=== PATIENT | male | born 1975 | race Caucasian/White ===

== ENCOUNTER 2018-04-21 17:36 | Emergency (ER) | payer OTHER ==
--- NOTE | 2018-04-21 18:08 | EDPHY ---
H & P Stated Complaint: Recheck abcess R index finger w/cellulitis;worse today; streaking up arm Time Seen by Provider: 04/21/18 18:08 - Personal History Current Tetanus Diphtheria and Acellular Pertussis (TDAP): Yes - Medical/Surgical History Hx Asthma: Yes Hx Chronic Respiratory Disease: No Hx Diabetes: No Hx Cardiac Disease: No Hx Renal Disease: No Hx Cirrhosis: No Hx Alcoholism: No Hx HIV/AIDS: No Hx Splenectomy or Spleen Trauma: No Other PMH: asthma - Social History Smoking Status: Former smoker Constitutional: Initial Vital Signs Temperature (C) 36.6 C 04/21/18 17:38 Heart Rate 71 04/21/18 17:38 Respiratory Rate 16 04/21/18 17:38 Blood Pressure 132/89 H 04/21/18 17:38 O2 Sat (%) 95 04/21/18 17:38 O2 Delivery Mode Room Air Allergies/Adverse Reactions: No Known Allergies Allergy (Verified 04/21/18 17:37) Home Medications: Medication Instructions Recorded Albuterol Hfa Anes Only 04/20/18 Cephalexin [Keflex] 500 mg PO Q6H #28 cap 04/20/18 Doxycycline Hyclate 100 mg PO BID #14 tab 04/21/18 Medical Decision Making ED Course/Re-evaluation: CHIEF COMPLAINT: Cellulitis, spider bite HISTORY OF PRESENT ILLNESS: This patient is a 42 year old male returning to the emergency department with worsening symptoms secondary to a possible spider bite. He sustained a bite to his right index finger and presented yesterday with erythema to the finger below the nail with mild streaking up the right index finger to the dorsal aspect of his right arm. Today, the area below his fingernail is swollen and dark-colored. He states he was able to express some purulent drainage. Additionally, the streaking now extends to his axilla and he endorses lymph node swelling in the axilla as well. Patient began a course of Keflex yesterday evening. He denies fever, vomiting, racing heart, or other associated symptoms. REVIEW OF SYSTEMS: A 10 point review of systems was performed and is negative with the exception of the elements mentioned in the history of present illness. PHYSICAL EXAM: HR, BP, O2 Sat, RR. Temp noted General Appearance: Alert, well hydrated, appropriate, and non-toxic appearing. Head: Atraumatic without scalp tenderness or obvious injury Eyes: Pupils equal, round, reactive to light and accommodation, EOMI, no trauma , no injection. Ears: Clear bilaterally, no perforation, normal landmarks Nose: Atraumatic, no rhinorrhea, clear. Throat: There is no erythema or exudates, no lesions, normal tonsils, mucus membranes moist. Neck: Supple, 2+ carotid upstroke, nontender, no lymphadenopathy. Respiratory: No retractions, no distress, no wheezes, and no accessory muscle use. Lungs are clear to auscultation bilaterally. Cardiovascular: Regular rate and rhythm, no murmurs, rubs, or gallops. Bilateral carotid, radial, dorsalis pedis, and posterior tibial pulses intact. Good capillary refill all extremities. Gastrointestinal: Abdomen is soft, nontender, non-distended, no masses, no rebound, no guarding, no peritoneal signs. Musculoskeletal: Normal active ROM of all extremities, atraumatic. Neurological: Alert, appropriate, and interactive. The patient has normal DTRs and non-focal cranial nerves, motor, sensory, and cerebellar exam. Skin: Right index finger has swollen and discolored perionychium, erythematous with dark purple center area. Lymphangitis and positive lymphedema of right axilla. Skin otherwise normal color, warm, dry. Past medical history: Asthma Past surgical history: Noncontributory Family history: Noncontributory Social history: Single. Lives in [place]. Employed. Does not abuse tobacco, drugs, or alcohol. DIAGNOSTICS/PROCEDURES/CRITICAL CARE TIME: Procedure: Incision and Drainage abscess. The patient's abscess was located on the right index finger. Risks, benefits, alternatives discussed with the patient and consent obtained. The area was prepped and draped in sterile fashion. The patient received local anesthesia with 1% lidocaine with epinephrine. The abscess was incised with a #11 blade and purulent drainage was expressed. The wound was irrigated and dressed. The patient tolerated the procedure well. The procedure was performed by myself. DIFFERENTIAL DIAGNOSIS: Includes but not limited to: insect bite, cellulitis, lymphangitis, abscess. MEDICAL DECISION [id number] y/o male presents with lymphangitis and a swollen and discolored perionychium secondary to a spider bite. Swollen axillary nodes present. The patient does not appear systemically ill. He is afebrile, vitals within normal limits. Plan for I&D of infected perionychium. See procedure note above. The patient tolerated the procedure well. Plan to discharge home in good condition. He will continue to take Keflex but I have added Doxycycline to his antibiotic regimen to better cover staph bacteria. I discussed precautions around this medication including avoiding sun exposure. Strict return precautions discussed. He will return if his symptoms do not resolve within 24- 48 hours, or if there is any worsening of condition. He is comfortable with this plan. - Data Points Medications Given: Discontinued Medications Doxycycline Hyclate (Vibramycin 100 Mg Prepack#2) 1 btl TAKEHOME EDNOW ONE Stop: 04/21/18 18:21 Last Admin: 04/21/18 18:29 Dose: 1 btl Doxycycline Hyclate (Doxycycline Hyclate) 100 mg PO EDNOW ONE PRN Reason: Protocol Stop: 04/21/18 18:21 Last Admin: 04/21/18 18:27 Dose: 100 mg Departure - Departure Disposition: Home, Routine, Self-Care Clinical Impression: Acute lymphangitis Cellulitis Qualifiers: Site of cellulitis: extremity Site of cellulitis of extremity: finger Laterality: right Qualified Code(s): L03.011 - Cellulitis of right finger Spider bite Qualifiers: Encounter type: initial encounter Injury intent: undetermined intent Qualified Code(s): T63.304A - Toxic effect of unspecified spider venom, undetermined, initial encounter Condition: Good Instructions: Doxycycline (By mouth), Insect Bite or Sting (ED), Lymphangitis ( ED) Additional Instructions: 1. Take doxycycline as prescribed. Avoid sun exposure while taking this medication. Wear sunscreen and a hat as well as your sun protectant shirts as we discussed. 2. Continue taking Keflex. 3. Follow up with your primary care provider. 4. Return to the Emergency Department for fever, redness, discharge from wound, increasing pain or other worsening of condition. Return to the emergency department if the red streaking on your arm does not resolve in the next 24-48 hours or if it spreads or worsens. Referrals: Cristina Hatch MD [Primary Care Provider] - As per Instructions Prescriptions: Doxycycline Hyclate 100 mg PO BID #14 tab Report Scribed for: Mayito Brian Report Scribed by: Amisha Manrique Date of Report: 04/21/18 Time of Report: 18:21
[2018-04-21] MEDS ORDERED: DOXYCYCLINE 100 MG PREPACK#2 BTL TAKEHOME ONE (18:20)
[2018-04-21] MEDS ORDERED: DOXYCYCLINE HYCLATE 100 MG CAP/TAB PO ONE (18:20)
[2018-04-21 18:50] VITALS: BP 138/91
== END 2018-04-21 18:54 | disposition home or self-care (01) ==
PROC: 0H9FXZZ Drainage of Right Hand Skin, External Approach (ICD-10-PCS; principal; 2018-04-21)
DX: S60.46 Insect bite (nonvenomous) of fingers (principal); L03.011 Cellulitis of right finger; R59.0 Localized enlarged lymph nodes; Z87.891 Personal history of nicotine dependence